=== PATIENT | male | born 1975 | race Two or more races ===

== ENCOUNTER 2022-07-14 16:48 | Emergency (ER) | payer BC ==
[2022-07-14] MEDS ORDERED: Sodium Chloride 0.9% 2.5 ML Syringe FLUSH PRN (18:31)
[2022-07-14] MEDS ORDERED: Sodium Chloride 0.9% 10 ML Syringe FLUSH PRN (18:31)
[2022-07-14] MEDS ORDERED: Sodium Chloride 0.9% 1,000 ML IV STA ×2 (18:32→19:16)
[2022-07-14 18:48] LABS: APPEARANCE,URINE CLEAR; BILIRUBIN,URINE NEGATIVE (NEGATIVE); COLOR,URINE YELLOW; GLUCOSE,URINE NEGATIVE (NEGATIVE); KETONES,URINE NEGATIVE (NEGATIVE); LEUKOCYTE ESTERASE,URINE NEGATIVE (NEGATIVE); NITRITE,URINE NEGATIVE (NEGATIVE); OCCULT BLOOD,URINE TRACE-INTACT (NEGATIVE); PROTEIN,URINE NEGATIVE (NEGATIVE); UROBILINOGEN,URINE 0.2 EU/dL (<2.0)
[2022-07-14 18:58] LABS: BASOPHILS ABSOLUTE AUTO 0.1 K/uL (0.0-0.1); BASOPHILS PERCENT AUTO 0.6 % (0.0-1.5); EOSINOPHILS ABSOLUTE AUTO 0.1 K/uL (0.0-0.7); EOSINOPHILS PERCENT AUTO 1.4 % (0.0-7.0); HEMATOCRIT 47.4 % (38.0-50.0); HEMOGLOBIN 15.9 g/dL (13.0-17.0); LYMPHOCYTES ABSOLUTE AUTO 2.5 K/uL (0.6-2.4); LYMPHOCYTES PERCENT AUTO 26.4 % (16.0-40.0); MEAN CORPUSCULAR HEMOGLOBIN 28.6 pg (27.0-32.0); MEAN CORPUSCULAR HGB CONC 33.5 g/dL (31.0-37.0); MEAN CORPUSCULAR VOLUME 85.3 fL (80.0-98.0); MONOCYTES ABSOLUTE AUTO 0.8 K/uL (0.0-0.8); MONOCYTES PERCENT AUTO 8.3 % (0.0-15.0); NEUTROPHILS ABSOLUTE AUTO 5.9 K/uL (1.4-5.7); NEUTROPHILS PERCENT AUTO 63.3 % (48.0-80.0); NRBC ABSOLUTE 0 K/uL; PLATELET COUNT,PLT 241 K/uL (150-400); RED BLOOD CELL COUNT 5.56 M/uL (4.50-5.90); WHITE BLOOD CELL COUNT,WBC 9.35 K/uL (4.0-11.0)
[2022-07-14 19:03] LABS: BACTERIA,URINE OCCASIONAL (NEGATIVE); EPITHELIAL CELLS,URINE FEW (NONE-FEW); RBC,URINE 0-5 (0-2/HPF); SQUAMOUS EPITHELIAL CELLS,UR FEW; WBC,URINE NONE SEEN (0-5/HPF)
[2022-07-14 19:11] LABS: ALBUMIN 3.6 g/dL (3.4-5.0); BILIRUBIN TOTAL 0.3 mg/dL (0.2-1.0); CALCIUM 8.6 mg/dL (8.5-10.1); CARBON DIOXIDE,CO2 26.6 mmol/L (21.0-32.0); CREATININE 1.1 mg/dL (0.8-1.3); EST CRCL DRUG DOSING (CG) 85.72 mL/min; POTASSIUM,K 3.3 mmol/L (3.5-5.1); PROTEIN TOTAL,TP 7.1 g/dL (6.4-8.2)
[2022-07-14] MEDS ORDERED: Potassium Chloride 20 MEQ Tab.ER PO STA (19:17)
[2022-07-14] MEDS ORDERED: Iopamidol 755 MG/ML 500 ML Multipack Bottle IVPUSH ONE (19:31)
== END 2022-07-14 21:22 | disposition home or self-care (01) ==
LOC: MW.ED 16:48
DX: K57.30 Diverticulosis of large intestine without perforation or abscess without bleeding (principal); K63.89 Other specified diseases of intestine; H57.89 Other specified disorders of eye and adnexa; E87.6 Hypokalemia
CPT/HCPCS: 36415; 74177; 80053; 81001; 83690; 85025; 96360; 96361; 99284; A9270; J3490; J7030; Q9967